=== PATIENT | female | born 1940 | race Caucasian/White ===

== ENCOUNTER 2021-11-15 11:41 | Inpatient (IN) | payer MEDICARE ==
[2021-11-15] MEDS ORDERED: Aspirin Chewable 81 MG TAB ONE (12:16)
[2021-11-15 12:26] LABS: #Lymphocytes 1.1 thou/uL (1.20-3.40); #Monocytes 0.7 thou/uL (0.11-0.59); #Neutrophils 8.1 thou/uL (1.40-6.50); %Basophils 0.1 % (0.0-1.0); %Eosinophils 0.1 % (0.0-10.0); %Lymphocytes 10.9 % (21.0-51.0); %Monocytes 6.6 % (0.0-10.0); %Neutrophils 82.4 % (42.0-75.0); Hemoglobin 13.8 g/dL (12.0-16.0); Mean Corpuscular Hemoglobin 29.3 pg (27.0-31.0); Mean Corpuscular Volume 88.8 fL (78.0-98.0); Mean Platelet Volume 10.2 fL (7.4-10.4); Platelet Count 201 thou/uL (130-400); RBC Distribution Width 11.4 % (11.5-14.5); Red Blood Cell (RBC) Count 4.69 mill/uL (4.20-5.40); White Blood Cell (WBC) Count 9.9 thou/uL (4.8-10.8)
[2021-11-15 12:35] LABS: Prothrombin Time 12.7 sec (12.0-14.7)
[2021-11-15 12:37] LABS: INR-International Normal Ratio 0.9; PTT 34.3 sec (22.9-36.1)
[2021-11-15 12:49] LABS: ALT (SGPT) 18 U/L (8-55); AST (SGOT) 30 U/L (5-34); Albumin 4.4 g/dL (3.4-4.8); Alkaline Phosphatase 99 U/L (40-110); Anion Gap 16 mmol/L (10-20); BUN (Urea Nitrogen) 12 mg/dL (9.8-20.1); Bilirubin, Total 0.9 mg/dL (0.2-1.2); Calc. Creatinine Clearance 0 mL/min (70-130); Calcium 9.7 mg/dL (7.8-10.44); Carbon Dioxide 22 mmol/L (23-31); Chloride 104 mmol/L (98-107); Estimated GFR 83; Globulin 3.5 g/dL (2.4-3.5); Glucose 133 mg/dL (83-110); Lipase 19 U/L (8-78); Potassium 3.7 mmol/L (3.5-5.1); Protein, Total 7.9 g/dL (5.8-8.1); Sodium 138 mmol/L (136-145)
[2021-11-15] MEDS ORDERED: Morphine 4 MG/ML VIAL ONE (12:56)
[2021-11-15] MEDS ORDERED: Labetalol HCl 100 MG/20 ML VIAL SLOW IVP PRN (14:46)
[2021-11-15] MEDS ORDERED: hydrALAZINE 20 MG/ML VIAL SLOW IVP PRN (14:46)
[2021-11-15] MEDS ORDERED: Aspirin 300 MG Suppository ONE (14:55)
[2021-11-15 15:05] LABS: SARS-CoV-2 NAA Rapid Test Not Detected (NotDetected)
[2021-11-15] MEDS ORDERED: Acetaminophen 650 MG Suppository PR PRN (15:29)
[2021-11-15] MEDS ORDERED: Ondansetron PF 4 MG/2 ML Vial IVP PRN (15:29)
[2021-11-15 15:51] VITALS: BMI 26.1
[2021-11-15] MEDS: Sodium Chloride 0.9% 1,000 ML IV SCH (16:54)
[2021-11-15 18:03] LABS: Troponin I Less than 0.010 ng/mL (< 0.028)
[2021-11-15] MEDS: Fentanyl 100 MCG/2 ML VIAL SLOW IVP PRN (18:30)
[2021-11-15] MEDS ORDERED: Fentanyl 100 MCG/2 ML VIAL ONE (18:33)
[2021-11-15] MEDS ORDERED: Atorvastatin Calcium 40 MG TAB PO SCH (21:00)
[2021-11-15] MEDS ORDERED: Electrolyte Replacement Protocol FS PRN (23:15)
[2021-11-15] MEDS ORDERED: Magnesium 2 GM/50 ML(in water) 2 GM in Premix Bag 1 BAG IVPB SCH (23:15)
[2021-11-16] MEDS: Sodium Chloride 0.9% 1,000 ML IV SCH ×3 (04:03→23:57)
[2021-11-16 06:06] LABS: Anion Gap 14 mmol/L (10-20); BUN (Urea Nitrogen) 10 mg/dL (9.8-20.1); CK (CPK) 788 U/L (29-168); Calc. Creatinine Clearance 75 mL/min (70-130); Calcium 8.9 mg/dL (7.8-10.44); Carbon Dioxide 20 mmol/L (23-31); Cardiac Risk 4.5 (Less than 4.5); Chloride 109 mmol/L (98-107); Cholesterol 218 mg/dl (< 200 Desired); Estimated GFR 89; Glucose 97 mg/dL (83-110); HDL Cholesterol 48 mg/dL (>60 Neg Risk); LDL Cholesterol, Calculated 143 mg/dL; Magnesium 2.4 mg/dL (1.6-2.6); Potassium 3.4 mmol/L (3.5-5.1); Sodium 140 mmol/L (136-145); Triglycerides 134 mg/dL (Less than 150)
[2021-11-16] MEDS: Aspirin 300 MG Suppository PR SCH (08:45)
[2021-11-16] MEDS: Famotidine/PF 20 mg/2ml Vial SLOW IVP SCH (08:45)
[2021-11-16] MEDS: Enoxaparin Sodium 40 MG/0.4 ML SYRINGE SC SCH (08:45)
[2021-11-16] MEDS: Fentanyl 100 MCG/2 ML VIAL SLOW IVP PRN ×2 (11:03→16:03)
[2021-11-16] MEDS ORDERED: Midazolam HCl 2 mg/2 ml Vial SLOW IVP SCH (11:30)
[2021-11-16] MEDS ORDERED: Potassium Chloride 40 MEQ in Sodium Chloride 0.9% 250 ML 250 ML IVPB SCH (11:30)
[2021-11-16] MEDS: Diclofenac 1% 100 GM GEL TP SCH ×3 (14:56→20:51)
[2021-11-16] MEDS: Atorvastatin Calcium 40 MG TAB PO SCH (20:52)
[2021-11-17] MEDS: Fentanyl 100 MCG/2 ML VIAL SLOW IVP PRN (03:41)
[2021-11-17] MEDS ORDERED: Fentanyl 100 MCG/2 ML VIAL SLOW IVP SCH (05:30)
[2021-11-17] MEDS: Enoxaparin Sodium 40 MG/0.4 ML SYRINGE SC SCH (08:10)
[2021-11-17] MEDS: Aspirin 300 MG Suppository PR SCH (08:10)
[2021-11-17] MEDS: Famotidine/PF 20 mg/2ml Vial SLOW IVP SCH (08:10)
[2021-11-17] MEDS: Sodium Chloride 0.9% 1,000 ML IV SCH ×2 (08:12→17:18)
[2021-11-17] MEDS: Diclofenac 1% 100 GM GEL TP SCH (08:13)
[2021-11-17 08:35] LABS: #Eosinphils 0.1 thou/uL (0.0-0.7); #Lymphocytes 1.7 thou/uL (1.20-3.40); #Monocytes 0.9 thou/uL (0.11-0.59); #Neutrophils 6.3 thou/uL (1.40-6.50); %Basophils 0.3 % (0.0-1.0); %Eosinophils 0.8 % (0.0-10.0); %Lymphocytes 18.8 % (21.0-51.0); %Monocytes 9.8 % (0.0-10.0); %Neutrophils 70.4 % (42.0-75.0); Mean Corpuscular HGB CONC 33.8 g/dL (32.0-36.0); Mean Corpuscular Hemoglobin 30.4 pg (27.0-31.0); Mean Platelet Volume 8.8 fL (7.4-10.4); Platelet Count 249 thou/uL (130-400); RBC Distribution Width 11.6 % (11.5-14.5); Red Blood Cell (RBC) Count 4.61 mill/uL (4.20-5.40)
[2021-11-17 08:40] LABS: Anion Gap 18 mmol/L (10-20); BUN (Urea Nitrogen) 7 mg/dL (9.8-20.1); Calc. Creatinine Clearance 73 mL/min (70-130); Carbon Dioxide 17 mmol/L (23-31); Chloride 107 mmol/L (98-107); Estimated GFR 88; Glucose 81 mg/dL (83-110); Magnesium 2.1 mg/dL (1.6-2.6); Potassium 3.6 mmol/L (3.5-5.1); Sodium 138 mmol/L (136-145)
[2021-11-17] MEDS ORDERED: Baclofen 10 MG TAB PO SCH (12:00)
[2021-11-17] MEDS: Atorvastatin Calcium 40 MG TAB PO SCH (20:58)
[2021-11-17] MEDS: Baclofen 10 MG TAB PO SCH (20:59)
[2021-11-18] MEDS: Fentanyl 100 MCG/2 ML VIAL SLOW IVP PRN ×2 (03:41→12:26)
[2021-11-18] MEDS: Sodium Chloride 0.9% 1,000 ML IV SCH ×2 (03:43→15:26)
[2021-11-18] MEDS: Enoxaparin Sodium 40 MG/0.4 ML SYRINGE SC SCH (08:58)
[2021-11-18] MEDS: Aspirin 81 mg Enteric Coated Tablet PO SCH (09:00)
[2021-11-18] MEDS: Baclofen 10 MG TAB PO SCH ×2 (09:00→20:52)
[2021-11-18] MEDS: Famotidine/PF 20 mg/2ml Vial SLOW IVP SCH (09:00)
[2021-11-18] MEDS ORDERED: predniSONE 20 MG TAB PO SCH (11:45)
[2021-11-18] MEDS: diphenhydrAMINE 30 GM TUBE TOP PRN ×2 (13:23→20:52)
[2021-11-18] MEDS: Atorvastatin Calcium 40 MG TAB PO SCH (20:52)
[2021-11-18] MEDS ORDERED: Metoprolol Tartrate 5 MG/5 ML VIAL IVP SCH (21:15)
[2021-11-18 21:40] LABS: Anion Gap 18 mmol/L (10-20); BUN (Urea Nitrogen) 11 mg/dL (9.8-20.1); Calc. Creatinine Clearance 63 mL/min (70-130); Calcium 9.5 mg/dL (7.8-10.44); Carbon Dioxide 19 mmol/L (23-31); Chloride 107 mmol/L (98-107); Estimated GFR 79; Glucose 183 mg/dL (83-110); Potassium 3.6 mmol/L (3.5-5.1); Sodium 140 mmol/L (136-145)
[2021-11-19] MEDS: Sodium Chloride 0.9% 1,000 ML IV SCH ×3 (06:53→21:36)
[2021-11-19] MEDS ORDERED: Magnesium 2 GM/50 ML(in water) 2 GM in Premix Bag 1 BAG IVPB SCH (08:00)
[2021-11-19] MEDS: Fentanyl 100 MCG/2 ML VIAL SLOW IVP PRN ×2 (08:41→17:31)
[2021-11-19] MEDS: Enoxaparin Sodium 40 MG/0.4 ML SYRINGE SC SCH (08:41)
[2021-11-19] MEDS: Baclofen 10 MG TAB PO SCH ×2 (08:47→21:37)
[2021-11-19] MEDS: Metoprolol Tartrate 25 MG TAB PO SCH ×3 (08:47→21:38)
[2021-11-19] MEDS: Famotidine/PF 20 mg/2ml Vial SLOW IVP SCH (08:47)
[2021-11-19] MEDS: Aspirin 81 mg Enteric Coated Tablet PO SCH (08:47)
[2021-11-19] MEDS: predniSONE 20 MG TAB PO SCH (08:47)
[2021-11-19] MEDS: Atorvastatin Calcium 40 MG TAB PO SCH (21:37)
[2021-11-19] MEDS ORDERED: HYDROcodone/Acetaminophen 5/325 mg Tablet PO PRN (23:15)
[2021-11-19] MEDS ORDERED: diphenhydrAMINE 25 MG CAP PO SCH (23:45)
[2021-11-20] MEDS: Aspirin 81 mg Enteric Coated Tablet PO SCH (09:02)
[2021-11-20] MEDS: Baclofen 10 MG TAB PO SCH (09:02)
[2021-11-20] MEDS: Enoxaparin Sodium 40 MG/0.4 ML SYRINGE SC SCH (09:02)
[2021-11-20] MEDS: predniSONE 20 MG TAB PO SCH (09:02)
[2021-11-20] MEDS: Famotidine/PF 20 mg/2ml Vial SLOW IVP SCH (09:03)
[2021-11-20] MEDS ORDERED: Amlodipine 10 MG TAB PO SCH (09:15)
[2021-11-20] MEDS ORDERED: diphenhydrAMINE 25 MG CAP PO SCH (10:45)
[2021-11-20] MEDS: Sodium Chloride 0.9% 1,000 ML IV SCH (10:52)
[2021-11-20 12:25] VITALS: BP 154/64; TEMP 97.5
[2021-11-21] MEDS ORDERED: Amlodipine 10 MG TAB PO SCH (09:00)
== END 2021-11-20 14:12 | DRG 65 ==
LOC: ERS 11:41 → ERHOLD 13:10 → NEURO 20:00
PROVIDERS: ADMIT Family Medicine; ATTEND Internal Medicine
DX: I63.512 Cerebral infarction due to unspecified occlusion or stenosis of left middle cerebral artery (principal); G81.94 Hemiplegia, unspecified affecting left nondominant side; I47.1 Supraventricular tachycardia; R47.81 Slurred speech; R13.10 Dysphagia, unspecified; R47.1 Dysarthria and anarthria; L27.0 Generalized skin eruption due to drugs and medicaments taken internally; T50.8X5A Adverse effect of diagnostic agents, initial encounter; I10 Essential (primary) hypertension; E78.00 Pure hypercholesterolemia, unspecified; R00.1 Bradycardia, unspecified; M62.838 Other muscle spasm; Z90.710 Acquired absence of both cervix and uterus; Z88.0 Allergy status to penicillin; Z79.899 Other long term (current) drug therapy; Z20.822 Contact with and (suspected) exposure to COVID-19
CPT/HCPCS: 36415; 36416; 70450; 70496; 70498; 70551; 71045; 74230; 80048; 80053; 80061; 82550; 83690; 83735; 84484; 85025; 85610; 85730; 93005; 93010; 93306; 95712; 95819; 95957; 96374; J1650; J2250; J2270; J3010; J3475; J3480; J7050; J7512; S0028; U0002

== ENCOUNTER 2021-12-20 14:26 | Emergency (ER) | payer MEDICARE ==
[2021-12-20] MEDS ORDERED: Diazepam 5 MG TAB ONE (15:14)
== END 2021-12-20 19:50 ==
LOC: ERS 14:26
DX: R22.32 Localized swelling, mass and lump, left upper limb (principal)
CPT/HCPCS: 99283